=== PATIENT | male | born 1990 | race Caucasian/White ===

== ENCOUNTER 2018-06-22 16:09 | Emergency (ER) | payer OTHER ==
[~2018-06-22] VITALS: Ht 180.3 cm; Wt 81.6 kg
[2018-06-22] MEDS ORDERED: LAMO25TA5 PO (16:30)
[2018-06-22] MEDS ORDERED: BUPR200T2 PO (16:30)
--- NOTE | 2018-06-22 16:30 | NUR ---
Pt assessed. Witnessed seizure by friend apx 30 minutes ago that lasted 1 minute. Pt was post ictal per friend. Pt has no hx seizures. Pt did fall to the ground, denies any other injury. Will cont to monitor
--- NOTE | 2018-06-22 16:35 | NUR ---
seizure precautions in place, pt to CT via [place]
[2018-06-22 16:45] LABS: BASOPHILS # (AUTO) 0.06 x10^3/uL (0-0.1); BASOPHILS % (AUTO) 1 % (0-1); EOSINOPHILS # (AUTO) 0.09 x10^3/uL (0-0.4); EOSINOPHILS % (AUTO) 2 % (1-7); LYMPHOCYTES # (AUTO) 1.04 x10^3/uL (1-3.4); LYMPHOCYTES % (AUTO) 18 % (22-44); MD NO; MEAN CORPUSCULAR HEMOGLOBIN 29.4 pg (27.5-34.5); MEAN CORPUSCULAR HGB CONC 33.9 g/dL (33.2-36.2); MEAN CORPUSCULAR VOLUME 86.9 fL (81-97); MEAN PLATELET VOLUME 7.5 fL (7.4-10.4); MONOCYTES # (AUTO) 0.31 x10^3/uL (0.2-0.8); MONOCYTES % (AUTO) 5 % (2-9); NEUTROPHILS # (AUTO) 4.28 x10^3/uL (1.8-6.8); NEUTROPHILS % (AUTO) 74 % (42-75); PLATELET COUNT 273 x10^3/uL (130-400); RED BLOOD COUNT 5.52 x10^6/uL (4.38-5.82); RED CELL DISTRIBUTION WIDTH 13.1 % (9.4-14.8)
[2018-06-22 16:51] LABS: ALBUMIN 4.7 g/dL (3.4-5.0); ANION GAP 9 mmol/L (5-15); CALCIUM 9.4 mg/dL (8.5-10.1); CHLORIDE 105 mmol/L (98-107); CREATININE 1.27 mg/dL (0.7-1.3)
[2018-06-22 18:37] VITALS: BP 137/93
--- NOTE | 2018-06-22 18:58 | NUR ---
PT AMB IN ROOM, NO SEIZURE ACTIVITY, IV DC'D WITH CANNULA INTACT. REVIEWED DC INSTRUCTIONS WITH PT. 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 PT TO CONTINUE THESE MEDICATIONS. UNDERSTANDING VERBALIZED. PT LEFT AMB, WITH FAMILY, GAIT STEADY.
== END 2018-06-22 19:02 | disposition home or self-care (01) ==
LOC: ED 18:51
DX: S00.81XA Abrasion of other part of head, initial encounter (principal); R56.9 Unspecified convulsions; F32.9 Major depressive disorder, single episode, unspecified; W18.39XA Other fall on same level, initial encounter; Y93.89 Activity, other specified; Y92.89 Other specified places as the place of occurrence of the external cause; Y99.8 Other external cause status
CPT/HCPCS: 36415; 70450; 80048; 82040; 85025; 93005; 99284